=== PATIENT | male | born 1975 | race Caucasian/White ===

== ENCOUNTER 2020-03-31 06:10 | Day surgery (SDC) | payer OTHER ==
[2020-03-28 15:01] VITALS: BMI 33.2
--- NOTE | 2020-03-30 20:32 | HP ---
Satellite [facility] - Chief Complaint Chief Complaint: left wrist mass - Past Medical History Allergies/Adverse Reactions: Allergies Allergy/AdvReac Type Severity Reaction Status Date / Time No Known Allergies Allergy Verified 03/28/20 14:55 - Current Medications Current Medications: Home Medications Medication Instructions Recorded Fenofibric Acid [Trilipix] 135 mg PO DAILY 08/17/11 Sertraline HCl [Zoloft] 200 mg PO DAILY 08/17/11 Aripiprazole [Abilify -] 2 mg PO DAILY 03/28/20 Nebivolol HCl [Bystolic] 10 mg PO DAILY 03/28/20 Simvastatin 40 mg PO DAILY 03/28/20 Satellite Physical Exam - Physical Examination General Appearance: Well Nourished, Well Developed, Alert & Oriented x3 ENT: Clear Lung: Normal air movement Extremities: Other (left wrist- + mass, good rom, nvi) Neurological: Intact, Alert, Oriented Satellite Impression/Plan - Impression/Plan Impression: left wrist ganglion cyst Operative Procedure: left wrist ganglion cyst excision Date to be Performed: 03/31/20
--- OUTSIDE RECORDS SUMMARY | 2020-03-31 06:13 | XMS ---
:1975 Author Organization [facility] Care Team Providers Name Role Phone KARY CHAVARRIA Unavailable Unavailable Re-disclosure Warning The records that you are about to access may contain information from federally- assisted alcohol or drug abuse programs. If such information is present, then the following federally mandated warning applies: This information has been disclosed to you from records protected by federal confidentiality rules (42 CFR part 2). The federal rules prohibit you from making any further disclosure of this information unless further disclosure is expressly permitted by the written consent of the person to whom it pertains or as otherwise permitted by 42 CFR part 2. A general authorization for the release of medical or other information is NOT sufficient for this purpose. The Federal rules restrict any use of the information to criminally investigate or prosecute any alcohol or drug abuse patient.The records that you are about to access may contain highly sensitive health information, the redisclosure of which is protected by Article 27-F of the [facility] Public Health law. If you continue you may haveaccess to information: Regarding HIV / AIDS; Provided by facilities licensed or operated by the [facility] Office of Mental Health; or Provided by the [facility] Office for People With Developmental Disabilities. If such information is present, then the following [facility] mandated warning applies: This information has been disclosed to you from confidential records which are protected by state law. State law prohibits you from making any further disclosure of this information without the specific written consent of the person to whom it pertains, or as otherwise permitted by law. Any unauthorized further disclosure in violation of state law may result in a fine or residential sentence or both. A general authorization for the release of medical or other information is NOT sufficient authorization for further disclosure. Encounters Encounter Providers Location Date Indications Data Source(s ) Outpatient Attender: DEON, 10/26/2019 Z01.84 [facility] KARY CastellonAdmitter: 01:54:00 PM [facility] KARY CHAVARRIA EDT Corporatio n ETundeReferrer: KARY CHAVARRIA Z84 Outpatient Attender: DEON, 10/26/2019 01:52:00 Z.84 [facility]Ad[facility]A n ETundeReferrer: KARY CHAVARRIA Z84 Outpatient Attender: DEON, 10/26/2019 06:00:00 Z.84 [facility] KARY CastellonAdmitter: AM EDT [facility] KARY CHAVARRIA ETundeReferrer: KARY CHAVARRIA Z84 Insurance Providers Payer name Policy type / Policy ID Covered Covered democrat's Policy Plan Coverage type democrat ID relationship to Larose Information larose UMR [id number] Problems, Conditions, and Diagnoses Code Display Name Description Problem Type Effective Dates Data Source(s) Z01.84 Encounter for ENCOUNTER FOR Diagnosis 10/26/2019 [facility] antibody response ANTIBODY RESPONSE 01:56:00 PM EDT [facility] EXAMINATION Care Corpora tion Results ID Date Data Source [id number] 01/01/2020 11:46:00 AM EDT [facility] Name Value Range Interpretation Description Data Sup porting Code Source(s) Document(s ) SARS [facility] coronavirus 2 RNA This lab was ordered by [facility] and reported by [facility]. Procedure
[2020-03-31] MEDS ORDERED: LIDOCAINE HCL 1%, 10 MG/ML (20ML VIAL) ONE (07:11)
[2020-03-31] MEDS ORDERED: BUPIVACAINE HCL/PF 0.5% (5MG/ML) 10 ML VIAL ONE (07:11)
[2020-03-31] MEDS ORDERED: MIDAZOLAM HCL 2 MG/2 ML SINGLE DOSE VIAL ONE (07:40)
[2020-03-31] MEDS ORDERED: PROPOFOL 20 ML ONE ×2 (08:01)
[2020-03-31] MEDS ORDERED: SUCCINYLCHOLINE CHLORIDE 200 MG/10 ML SYRINGE ONE (08:02)
[2020-03-31] MEDS ORDERED: ceFAZolin SODIUM 1 GM VIAL ONE (08:18)
[2020-03-31] MEDS ORDERED: ONDANSETRON 4 MG/2 ML VIAL ONE (08:18)
[2020-03-31] MEDS ORDERED: DEXAMETHASONE SOD PHOSPHATE 4 MG/1 ML VIAL ONE (08:18)
[2020-03-31] MEDS ORDERED: BUPIVACAINE HCL/PF 0.5% (5MG/ML) 10 ML VIAL IJ ONE (08:34)
[2020-03-31] MEDS ORDERED: LIDOCAINE HCL 1%, 10 MG/ML (20ML VIAL) INF ONE (08:34)
--- NOTE | 2020-03-31 09:08 | OP ---
Operative Note - Note: Operative Date: 03/31/20 Pre-Operative Diagnosis: left wrist mass Operation: excision mass left wrist Post-Operative Diagnosis: Same as Pre-op Surgeon: Chip Paz Anesthesiologist/SURFACE GRINDING MACHINE HAND: Lexi Aldridge Anesthesia: Local, MAC Specimens Removed: mass left wrist Estimated Blood Loss (mls): 0 Drains, Volume Out (mls): 0 Blood Volume Replaced (mls): 0 Fluid Volume Replaced (mls): 500 Operative Report Dictated: Yes
[2020-03-31 09:53] VITALS: TEMP 98.2
[2020-03-31 09:57] VITALS: BP 120/68; PULSE 68
--- NOTE | 2020-03-31 10:05 | OP ---
DATE OF OPERATION: 03/31/2020 PREOPERATIVE DIAGNOSIS: Left wrist mass. POSTOPERATIVE DIAGNOSIS: Left wrist mass. PROCEDURE: Excision left wrist mass. SURGEON: Perry López MD ASSISTANTS: None. ANESTHESIOLOGIST: Lexi Aldridge MD ANESTHESIA: MAC anesthesia with local injection of 12 mL of 0.5% Marcaine, 1% lidocaine mix. DRAINS: None. COMPLICATIONS: None. SPECIMEN: Mass left wrist. BLOOD GIVEN: None. FLUID REPLACEMENT: Plasma-Lyte 500 mL. INDICATIONS: This patient is a 45-year-old male with a preoperative diagnosis of a painful growing mass on the dorsal aspect of his left wrist. After understanding the potential risks, complications, alternatives and benefits of surgery versus nonsurgical treatment, patient has elected to undergo this procedure. He understands that it may or may not be a ganglion cyst, it may or may not be something more concerning, there is a chance of recurrence; he may need additional treatment. These and other concerns were addressed and he has elected to go forward with surgery. DESCRIPTION OF PROCEDURE: He was brought into the operating room, peripheral IV placed, IV sedation given, 3 g of IV Ancef given. MAC anesthesia was induced. Left upper extremity was prepped and draped in a sterile fashion, elevated and exsanguinated with an Esmarch bandage, tourniquet inflated to 250 mmHg. The entire case was done under 3.8 loupe magnification. A transverse incision was marked out within Benny's lines on the dorsal aspect of the left wrist in the area of this mass. Twelve mL of 0.5% Marcaine, 1% lidocaine mix . It was injected in and around the surgical area. The incision was made with a No. 15 scalpel blade. Subcutaneous hemostasis was achieved with the bipolar cautery. Great care was taken to preserve all dorsal crossing neurovascular structures. Small Orion self-retaining retractors were placed into the wound exposing the dorsal extensor tendon retinaculum which was clearly being pushed up by a tight mass from underneath. A fresh No. 15 scalpel blade was utilized to cut down through the dorsal retinaculum in line with its fibers for later repair, immediately revealing an abnormal mass deep to the retinaculum going through the extensor tendons, going down to the dorsal wrist capsule. There was a fluid component, but it was not a classic ganglion cyst in the sense that there was more soft tissue involved including fat and fibrotic tissue. It was not discolored in any way. There was no blood. It was not orange, did not look like PVNS. It was not as well encapsulated as a typical ganglion cyst. Great care was taken to do circumferential dissection and it was excised in its entirety. It did not have a defined stalk, but it did go down to the dorsal wrist capsule. It was excised at its base. The area was copiously irrigated and washed out. I searched underneath the extensor tendons and the entire area. There was no other abnormal tissue seen. It was irrigated again, bathed in local anesthetic and closure done. The dorsal retinaculum was closed with 4-0 undyed Vicryl, the deep dermal layer closed with 4-0 undyed Vicryl. Final skin reapproximation was done with a running subcuticular 4-0 Biosyn. Surgical area was then washed and dried, covered with Steri-Strips, 4 x 4's, fluffs between the fingers, Webril and Coban. The tourniquet was taken down after total tourniquet time of 30 minutes. There was no complication during the case. The patient tolerated the procedure quite well and was brought to the ambulatory recovery room in stable condition. PERRY LÓPEZ M.D. [id number]
--- NOTE | 2020-04-04 16:45 | PATH ---
Surgical Pathology Report Patient Name: BHARATH ANDRES Med. Rec. #: [id number] /Age/Gender: 1975 (Age: 45) / M Account: [id number] Location: [facility] Taken: 03/31/2020 Received: 03/31/2020 Reported: 04/04/2020 Physicians: Chip Paz M.D. Specimen(s) Received LEFT WRIST MASS Clinical History Left wrist ganglion cyst Final Diagnosis WRIST MASS, LEFT, EXCISION: CONSISTENT WITH GANGLION CYST. Electronically Signed Fatou Heath M.D. Gross Description Received in formalin labeled "left wrist mass," is a 2.3 x 1.6 x 0.3 cm aggregate of alanis-yellow soft tissue fragments. No definitive cyst is identified. The specimen is submitted in toto in one cassette. /04/01/2020 saudi/04/01/2020
== END 2020-03-31 09:45 | disposition home or self-care (01) ==
LOC: FASU 06:10
PROVIDERS: ATTEND Orthopaedic Surgery
PROC: 0LB60ZZ Excision of Left Lower Arm and Wrist Tendon, Open Approach (ICD-10-PCS; principal; 2020-03-31 08:34)
DX: M67.432 Ganglion, left wrist (principal)
CPT/HCPCS: 88304-TC

== ENCOUNTER 2023-04-04 06:19 | Day surgery (SDC) | payer OTHER ==
[2023-04-02 11:45] VITALS: BMI 35.9
[2023-04-04] MEDS ORDERED: LIDOCAINE HCL 1%, 10 MG/ML (20ML VIAL) ONE (07:20)
[2023-04-04] MEDS ORDERED: MIDAZOLAM HCL 2 MG/2 ML SINGLE DOSE VIAL ONE (07:44)
[2023-04-04] MEDS ORDERED: PROPOFOL 20 ML ONE ×2 (07:44→09:12)
[2023-04-04] MEDS ORDERED: SODIUM CHLORIDE 0.9% P/F 10 ML VIAL IJ ONE (07:45)
[2023-04-04] MEDS ORDERED: ceFAZolin SODIUM 1 GM VIAL ONE (07:45)
[2023-04-04] MEDS ORDERED: GLYCOPYRROLATE 0.2 MG/1 ML VIAL ONE (07:45)
[2023-04-04] MEDS ORDERED: ACETAMINOPHEN INJECTION 100 ML IVPB ONE (08:16)
[2023-04-04] MEDS ORDERED: KETOROLAC TROMETHAMINE 30 MG/1 ML VIAL ONE (08:17)
[2023-04-04] MEDS ORDERED: DEXAMETHASONE SOD PHOSPHATE 4 MG/1 ML VIAL ONE (08:17)
[2023-04-04] MEDS ORDERED: ONDANSETRON 4 MG/2 ML VIAL ONE (08:17)
[2023-04-04] MEDS ORDERED: BUPIVACAINE HCL/PF 0.25% (2.5MG/ML) 10 ML VIAL ONE (08:37)
[2023-04-04] MEDS ORDERED: oxyCODONE HCL 5 MG TABLET PO PRN (09:43)
[2023-04-04] MEDS ORDERED: ONDANSETRON 4 MG/2 ML VIAL IVPUSH PRN (09:43)
[2023-04-04] MEDS ORDERED: PROMETHAZINE HCL 25 MG/1 ML VIAL IVPB PRN (09:43)
[2023-04-04] MEDS ORDERED: LACTATED RINGERS SOLUTION 1,000 ML IV SCH (09:45)
[2023-04-04 10:37] VITALS: RESP 16
[2023-04-04 10:40] VITALS: PULSE 69; TEMP 97.1
[2023-04-04 11:25] VITALS: BP 115/74
== END 2023-04-04 11:15 | disposition home or self-care (01) ==
LOC: FASU 06:19
PROVIDERS: ATTEND Orthopaedic Surgery
PROC: 0LQ40ZZ Repair Left Upper Arm Tendon, Open Approach (ICD-10-PCS; principal; 2023-04-04 08:32)
DX: M77.12 Lateral epicondylitis, left elbow (principal)
CPT/HCPCS: 88304-TC; 94760